=== PATIENT | female | born 1960 | race Caucasian/White ===

== ENCOUNTER 2025-10-03 12:58 | Emergency (ER) | payer MEDICARE, MEDICAID, SELFPAY ==
--- OUTSIDE RECORDS SUMMARY | 2025-01-01 08:45 | XMS_ITS ---
Author Organization [facility] [place] Address [address] [place] [address] [place] [address] Care Team Providers Care Slackman Name Role Phone ARAMIS LARSENMIHAICarmen Unavailable [phone] MonoJean-Pierre garza Unavailable [phone] REASON FOR VISIT CANCELLED Encounters Encounter Location Date Provider Diagnosis [facility] [place] [address] [place], [place] [id number] 01/01/2025 Lica Monobe Plan Of Treatment No Information Progress Notes * JAIME MCKEONDOB:1960 (65 yo F)Acc No.[id number]:01/01/2025 Progress Notes Patient: JAIME GARCIA Provider: John Danielson :1960 A ge:64 Y S ex:Female Date:01/01/2025 Address:[address] [id number] Subjective: * Chief Complaints: * 1 . CANCELLED. * Medical History: Objective: * Vitals: Assessment: Plan: * Treatment: * * Electronic signature of Jean-Pierre Danielson , PAC on 10/03/2025 at 01:28 PM EST Sign off status: Pending * Provider: John Danielson Date: 0 01/01/2025 Generated for Avnii ng/Adriana/eTransmitting on: 1 12/03/2024 01:28 PM EST
--- OUTSIDE RECORDS SUMMARY | 2025-02-11 05:30 | XMS_ITS ---
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 Role Phone KEN LARSENBambiJIMMYJAMES Unavailable [phone] MonoJean-Pierre garza Unavailable [phone] REASON FOR VISIT 6 WEEK FOLLOW UP Encounters Encounter Location Date Provider Diagnosis [facility] [place] [address] [facility] [place], [place] [id number] 02/11/2025 Lica Monobe Plan Of Treatment No Information Progress Notes * JAIME MCKEONDOB:1960 (65 yo F)Acc No.[id number]:02/11/2025 Progress Notes Patient: JAIME GARCIA Provider: John Danielson :1960 A ge:64 Y S ex:Female Date:02/11/2025 Address:[address] [facility] Subjective: * Chief Complaints: * 1 . 6 WEEK FOLLOW UP. * Medical History: Objective: * Vitals: Assessment: Plan: * Treatment: * * Electronic signature of Jean-Pierre Danielson PAC on 10/03/2025 at 01:28 PM EST Sign off status: Pending * Provider: John Danielson Date: 0 02/11/2025 Generated for Kylie rose/Adriana/eTjuan on: 1 12/03/2024 01:28 PM EST
[2025-10-03] VITALS (7 sets, daily range): BP systolic 113–140; BP diastolic 66–85; PULSE 72–86; RESP 20; TEMP 36.7–37; O2SAT 93–99; BMI 22.1
--- NOTE | 2025-10-03 13:04 | CT_ITS ---
FINAL REPORT TECHNIQUE: Thin section axial images were obtained from the aortic arch to the skull base after intravenous contrast injection per CTA protocol. Multiplanar reconstruction images were obtained. Exam was performed using dose reduction techniques and the ALARA principle. CLINICAL HISTORY: trauma, critical injury suspected FINDINGS: CTA NECK: Aortic arch: There is a normal three-vessel configuration to the aortic arch. There is no significant stenosis of the great vessels at their origins. Right carotid artery: The right common carotid artery is patent without stenosis. The cervical portions of the right internal carotid artery are patent without stenosis. 0% stenosis per NASCET criteria. Left carotid artery: The left common carotid artery is patent without stenosis. There is calcified plaque at the left carotid bulb. There is no significant stenosis of the internal carotid artery. 0% stenosis per NASCET criteria. Vertebral arteries: The vertebral arteries are patent. No significant stenosis. IMPRESSION: 0% carotid stenosis. Vertebral arteries are patent without significant stenosis. Reviewed, Interpreted and Dictated by Rubia Rodriguez MD Transcribed by Dionna Castro Authenticated and [facility]
--- NOTE | 2025-10-03 13:04 | CT_ITS ---
FINAL REPORT TECHNIQUE: Thin section axial images were obtained from skull base to vertex without contrast. Coronal reconstruction images were obtained from the axial data. Exam was performed using dose reduction techniques such as automated exposure control, adjustment of the mA and kV according to patient size, and use of iterative reconstruction technique. CLINICAL HISTORY: trauma, critical injury suspected FINDINGS: There is no mass effect or midline shift. There is no hydrocephalus. There is no intracranial hemorrhage. The posterior fossa is without acute abnormality. The basilar cisterns are preserved. There is soft tissue edema at the right temporal scalp. There is a radiopaque density in the soft tissues, could be foreign body. No skull fracture is identified. IMPRESSION: No acute intracranial abnormality. Radiopaque density in the soft tissues, could be foreign body. No skull fracture identified. Reviewed, Interpreted and Dictated by Rubia Rodriguez MD Transcribed by Dionna Castro Authenticated and [facility]
--- NOTE | 2025-10-03 13:04 | CT_ITS ---
FINAL REPORT TECHNIQUE: Thin section axial images are obtained through the brain after intravenous contrast injection. Multiplanar reconstructions were obtained from the axial data. Exam was performed using dose reduction techniques such as automated exposure control, adjustment of the mA and kV according to patient size, and use of iterative reconstruction technique. CLINICAL HISTORY: trauma, critical injury suspected FINDINGS: The intracerebral portions of the carotid arteries are patent. The anterior and middle cerebral arteries are patent without stenosis or occlusion. The posterior cerebral arteries are patent. The basilar artery is patent. The vertebral arteries are patent. There is no significant stenosis, aneurysm, or AVM. IMPRESSION: Unremarkable CT angiogram of the intracerebral vasculature. Reviewed, Interpreted and Dictated by Rubia Rodriguez MD Transcribed by Dionna Castro Authenticated and . [facility]
--- NOTE | 2025-10-03 13:04 | CT_ITS ---
FINAL REPORT TECHNIQUE: Axial imaging of the chest is obtained after the administration of contrast. 3-D MIP reformatted images were also obtained and reviewed per PE protocol. CLINICAL HISTORY: trauma, critical injury suspected FINDINGS: There is no evidence of central pulmonary embolism.. There is no aortic dissection. Heart size is normal. There is no axillary or mediastinal lymphadenopathy. There is an enlarged right hilar lymph node measuring 18 mm. There is a 5 mm left upper lobe nodule on series 5, image 43. There is emphysema and changes of prior granulomatous disease. There is mild interlobular septal thickening with subpleural predominance, could represent mild pulmonary edema. There is no pleural or pericardial effusion. No acute osseous abnormality. IMPRESSION: No evidence of central pulmonary embolism or dissection. Left upper lobe nodule. Recommend 6 to 12-month follow-up CT. Interlobular septal thickening with subpleural predominance, could represent mild pulmonary edema. No acute traumatic injury. Reviewed, Interpreted and Dictated by Rubia Rodriguez MD Transcribed by Dionna Castro Authenticated and [facility]
--- NOTE | 2025-10-03 13:04 | CT_ITS ---
FINAL REPORT TECHNIQUE: Thin section axial images were obtained through the lumbar spine without contrast. Sagittal and coronal reconstruction images were obtained from the axial data. Exam was performed using dose reduction techniques. CLINICAL HISTORY: trauma, critical injury suspected FINDINGS: There is no acute fracture. There is mild scoliosis. The alignment is otherwise normal. Vertebral body height is preserved. There is multilevel degenerative disc disease, most pronounced at L4-5. There is no significant central stenosis. Paraspinal soft tissues are within normal limits. There is no paraspinal mass or fluid collection. IMPRESSION: No acute abnormality of the lumbar spine. Mild multilevel degenerative disease. Reviewed, Interpreted and Dictated by Rubia Rodriguez MD Transcribed by Dionna Castro Authenticated and [facility]
--- NOTE | 2025-10-03 13:04 | CT_ITS ---
FINAL REPORT TECHNIQUE: Thin section axial images were obtained through the thoracic spine without contrast. Sagittal and coronal images were obtained from the axial data. This study was performed with techniques to keep radiation doses as low as reasonably achievable, (ALARA). Individualized dose reduction techniques using automated exposure control or adjustment of mA and/or kV according to the patient's size were employed. CLINICAL HISTORY: trauma, critical injury suspected FINDINGS: There is no acute fracture of the thoracic spine. There is mild dextroscoliosis. The alignment is otherwise normal. There is multilevel degenerative disc disease. No acute paraspinal abnormality is identified. IMPRESSION: No fracture. Scoliosis and degenerative disc disease. Reviewed, Interpreted and Dictated by Rubia Rodriguez MD Transcribed by Dionna Castro Authenticated and [facility]
--- NOTE | 2025-10-03 13:04 | CT_ITS ---
FINAL REPORT TECHNIQUE: Thin section axial images were obtained through the abdomen after contrast injection per CT angiogram protocol. Multiplanar reconstruction images were obtained from the axial data. This exam was performed with techniques to keep radiation dose as low as reasonably achievable. This includes automated exposure control, adjustment of the MA and KVP, and iterative reconstruction technique. CLINICAL HISTORY: trauma, critical injury suspected FINDINGS: CTA: There is no evidence of abdominal aortic aneurysm. There is ectasia of the infrarenal abdominal aorta. There is focal dissection of the distal abdominal aorta on axial images 114 and 115, could be chronic. The celiac axis, superior mesenteric artery, and inferior mesenteric artery are patent without stenosis. The renal arteries are patent. The common iliac arteries and visualized portions of the internal and external iliac arteries are patent. No significant stenosis. NONVASCULAR: The gallbladder is absent. The liver, spleen, and pancreas are unremarkable. There is a right adrenal nodule measuring 24 mm. Cortical renal scarring is seen bilaterally. There is no evidence of bowel wall thickening or small bowel obstruction. The appendix is not identified but there are no secondary findings to suggest appendicitis. There is mild wall thickening of the urinary bladder, cystitis is not excluded. There is increased density in the urinary bladder, likely related to IV contrast. The uterus is present. No lymphadenopathy or free fluid. No acute osseous abnormality. IMPRESSION: No evidence of abdominal aortic aneurysm. 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 No acute traumatic injury. Wall thickening of the urinary bladder, cystitis is not excluded. Reviewed, Interpreted and Dictated by Rubia Rodriguez MD Transcribed by Dionna Castro Authenticated and [facility]
--- NOTE | 2025-10-03 13:04 | CT_ITS ---
FINAL REPORT TECHNIQUE: Thin section axial images were obtained through the cervical spine without contrast. Multiplanar reconstruction images were obtained from the axial data. Exam was performed using dose reduction techniques. CLINICAL HISTORY: trauma, critical injury suspected FINDINGS: There is no acute fracture. There is anterolisthesis of C5 on 6 and C6 on 7, favor degenerative. Multilevel degenerative disc disease is identified, most pronounced at C6-7. There is no evidence of unilateral or bilateral facet lock. Vertebral body height is preserved. No acute paraspinal abnormality is identified. IMPRESSION: Multilevel degenerative disc disease without acute osseous abnormality. Reviewed, Interpreted and Dictated by Rubia Rodriguez MD Transcribed by Dionna Castro Authenticated and . [facility]
--- NOTE | 2025-10-03 13:04 | HMH.EDGENADL ---
Discharge Plan Disposition Patient Disposition: Home, Self-Care Condition: Good Prescriptions Prescriptions: No Action oxcarbazepine 150 mg Tablet 150 mg PO BID benztropine 0.5 mg Tablet 0.5 mg PO DAILY omeprazole 20 mg Capsule,Delayed Release(Dr/Ec) 20 mg PO DAILY aspirin 81 mg Tablet,Chewable 81 mg PO DAILY fluphenazine HCl 5 mg Tablet 5 mg PO TID cholecalciferol (vitamin D3) [Vitamin D3] 50 mcg (2,000 unit) Tablet 50 mcg PO DAILY sertraline 200 mg Capsule 200 mg PO DAILY Referrals Follow up/Referrals: Provider,Referral, MD [Primary Care Provider, Medical] - See instructions Activity Restrictions/Add. Instructions Additional Instructions/Restrictions: You fell, and you cut your head. I fixed it with glue which will dissolve on its own. Return to the ER for any acute or worsening symptoms. Clinical Impressions Clinical Impression: Fall Print Language Print Language: Anguillan Discharge ED Provider: Yue Carl Adult HPI General Chief complaint: Fall Stated complaint: Fall Time Seen by Provider: 10/03/25 13:03 History of Present Illness HPI narrative: Patient is a 65-year-old female who presented to the emergency department from [facility] with concern for fall. Patient reportedly fell down 7 stairs hit her head. There was reportedly no loss of consciousness. Patient is on aspirin but no other blood thinners. Patient arrived alert and oriented x 3. Patient was given no medications and route. On arrival, patient states that she had a mechanical fall. Patient denies any pain except for some mild pain where the laceration is on her head. Patient denies any extremity pain. Patient states that she fell hit her back and has associated back pain. Patient denies any numbness or weakness. Related Data Home Medications ?Medication ?Instructions ?Recorded ?Confirmed aspirin 81 mg chewable tablet 81 mg PO DAILY 10/03/25 10/03/25 benztropine 0.5 mg tablet 0.5 mg PO DAILY 10/03/25 10/03/25 cholecalciferol (vitamin D3) 50 50 mcg PO DAILY 10/03/25 10/03/25 mcg (2,000 unit) tablet (Vitamin D3) fluphenazine HCl 5 mg tablet 5 mg PO TID 10/03/25 10/03/25 omeprazole 20 mg capsule,delayed 20 mg PO DAILY 10/03/25 10/03/25 release oxcarbazepine 150 mg tablet 150 mg PO BID 10/03/25 10/03/25 sertraline 200 mg capsule 200 mg PO DAILY 10/03/25 10/03/25 Allergies Allergy/AdvReac Type Severity Reaction Status Date / Time No Known Allergies Allergy Verified 10/03/25 13:15 [facility] Disclaimer: The information contained in this section may have been updated after the patient was seen, as this information can be updated by other users. Social History Smoking Status: Never smoker alcohol intake: never current occupational status: other Travel in the last 8 weeks?: None ROS Obtained: Yes All systems reviewed & no additional complaints except as documented and Yes Systems reviewed as appropriate & no additional complaints except as documented Physical Exam General General appearance: alert and in no apparent distress Head Head exam: normocephalic, normal inspection and other (3 cm laceration to left frontal scalp, no active bleeding) Eye Eye exam: Present normal appearance, PERRL and EOMI; Absent scleral icterus ENT ENT exam: Present normal exam and normal external ear exam Neck Neck exam: Present normal inspection, full ROM, tenderness (Midline cervical spine tenderness) and other Chest Chest inspection: Present normal inspection and symmetric chest wall rise Respiratory Respiratory exam: Present normal lung sounds bilaterally; Absent respiratory distress or wheezes Cardiovascular Cardiovascular exam: Present regular rate, normal rhythm and normal heart sounds Abdominal Exam Abdominal exam: Present soft and distention; Absent tenderness, guarding or rebound Extremities Exam Extremities exam: Present normal inspection and full ROM Back Exam Back exam: Present normal inspection, full ROM and tenderness (midline thoracic and lumbar spine tenderness) Neurological Exam Neurological exam: Present alert and oriented X3 Psychiatric Psychiatric exam: Present normal affect and normal mood Skin Skin exam: Present warm and dry Medical Decision Making Medical Records Medical records reviewed: Yes I reviewed the patient's medical records. Screening: Per USPSTF and CDC recommendations, given the prevalence of disease in our region, it is our hospital?s policy to screen for HIV and viral Hepatitis for all patients aged 18 and over and those with ongoing risk factors. Leonidas Inquiry Pt receiving controlled substance: No Vital Signs: 10/03/25 12:58 10/03/25 13:14 10/03/25 13:30 Temperature 98.6 F Temperature Source Oral Pulse Rate 85 Pulse Rate [Left Radial] 85 Respiratory Rate 20 Blood Pressure 117/66 Blood Pressure [Right Arm] 113/69 Blood Pressure Mean [Right Arm] 83 02 Sat by Pulse Oximetry 95 97 95 Oxygen Delivery Method Room Air Room Air 10/03/25 14:00 10/03/25 14:30 10/03/25 14:49 Temperature Temperature Source Pulse Rate 86 80 78 Pulse Rate [Left Radial] Respiratory Rate Blood Pressure 140/85 129/83 135/79 Blood Pressure [Right Arm] Blood Pressure Mean [Right Arm] 02 Sat by Pulse Oximetry 94 L 93 L 93 L Oxygen Delivery Method 10/03/25 15:40 Temperature 98.1 F Temperature Source Pulse Rate 72 Pulse Rate [Left Radial] Respiratory Rate 20 Blood Pressure 135/79 Blood Pressure [Right Arm] Blood Pressure Mean [Right Arm] 02 Sat by Pulse Oximetry Oxygen Delivery Method Room Air Lab Data Lab results reviewed: Yes I reviewed the patient's lab results. Lab Results 10/03/25 12:55: WBC 8.4, RBC 3.80 L, Hgb 11.0 L, Hct 33.6 L, MCV 88.4, MCH 28.9, MCHC 32.7, RDW 13.2, Plt Count 294, MPV 9.5, Neut % (Auto) 62.4, Lymph % (Auto) 25.8, Walton % (Auto) 5.7, Eos % (Auto) 5.4, Baso % (Auto) 0.5, Neut # (Auto) 5.2, Lymph # (Auto) 2.2, Walton # (Auto) 0.5, Eos # (Auto) 0.5 H, Baso # (Auto) 0.0, PT 11.4, INR 1.03, Sodium 135 L, Potassium 3.9, Chloride 99, Carbon Dioxide 29, Anion Gap 10.9, BUN 12, Creatinine 0.90, Estimated Creat Clear 50, Estimated GFR 63, Est GFR ( Amer) 76, Glucose 127 H, Calcium 8.6, Total Bilirubin 0.5, AST 23, ALT 10 L, Alkaline Phosphatase 83, Total Protein 6.8, Albumin 4.7, Globulin 2.1, Albumin/Globulin Ratio 2.2 H, Lipase 217 10/03/25 12:55 10/03/25 12:55 Orders (Tests/Meds): ED MEDICATIONS Discontinued Medications Generic Name Dose Route Start Last Admin Trade Name Freq PRN Reason Stop Dose Admin Iopamidol 160 ml 10/03/25 13:48 10/03/25 13:49 Iopamidol-370 (76%);100ml Bottle IV 10/03/25 13:49 160 ml ONCE ONE Administration Sodium Chloride 100 ml 10/03/25 13:48 10/03/25 13:49 0.9 % Sodium Chloride 50 Ml Vial IV 10/03/25 13:49 100 ml ONCE ONE Administration Sodium Chloride 10 ml 10/03/25 13:48 10/03/25 13:49 Sodium Chloride 0.9% 10ml Syr (Rad Only) IV 11/02/25 13:47 10 ml NEEDED PRN Administration Maintain IV Site ORDERS Category Date Time Status CT angio abd/pel - TRAUMA Stat Cat Scan 10/03/25 13:[address] angio chest - dissection Stat Cat Scan 10/03/25 13:[address] angio head Stat Cat Scan 10/03/25 13:[address] angio neck Stat Cat Scan 10/03/25 13:[address] cervical spine wo con Stat Cat Scan 10/03/25 13:[address] head/brain wo con Stat Cat Scan 10/03/25 13:[address] lumbar spine wo con Stat Cat Scan 10/03/25 13:[address] thoracic spine wo con Stat Cat Scan 10/03/25 13:04 Completed CXR --portable [XR chest portable] Stat Exams 10/03/25 13:05 Completed Pelvis XR 1-2 views [XR pelvis 1-2V] Stat Exams 10/03/25 13:05 Completed CBC w/Auto Diff [Complete Blood Count Auto Diff] Stat Lab 10/03/25 12:55 Completed CMP [Comprehensive Metabolic Panel] Stat Lab 10/03/25 12:55 Completed Lipase Stat Lab 10/03/25 12:55 Completed PT INR [Prothrombin Time INR] Stat Lab 10/03/25 12:55 Completed Medical Decision Narrative: Patient is a 65-year-old female with no significant past medical history who presented to the emergency department after a fall. Patient reportedly fell down 7 stairs with no loss of consciousness. Patient is on daily aspirin. Patient states that she had a tetanus shot 1 year ago. Patient otherwise arrived hemodynamically stable with unremarkable vital signs. Differential includes but not limited to: Intracranial pathology, spinal pathology, electrolyte abnormalities, laceration, amongst others. On exam, patient had a 3 cm laceration to the frontal scalp that was repaired with glue. Patient's labs were reviewed and interpreted by myself and showed no acute electrolyte abnormalities. Patient's fall was mechanical in nature therefore EKG and tropes were not felt to be indicated for syncope rule out. CT scans were obtained including CT head, CT cervical spine CT lumbar spine CT thoracic spine which showed no acute pathology. Patient was otherwise able to ambulate in the emergency department patient was at her baseline. Patient was felt to be appropriate and stable for discharge home. Critical Care Critical Care Time Critical Care Time: No
--- NOTE | 2025-10-03 13:05 | XR_ITS ---
FINAL REPORT CLINICAL HISTORY: fall down stairs FINDINGS: The heart is normal in size. The mediastinum is unremarkable. Diffuse interstitial changes are probably chronic. The lungs are otherwise clear. There is no pneumothorax. Osseous structures unremarkable. IMPRESSION: No acute cardiopulmonary process. Continued followup is recommended. Reviewed, Interpreted and Dictated by Mike Amezcua MD Transcribed by Miguelina Walsh Authenticated and [facility]
--- NOTE | 2025-10-03 13:05 | XR_ITS ---
FINAL REPORT CLINICAL HISTORY: fall down stairs FINDINGS: SINGLE VIEW PELVIS: A single view of the pelvis was obtained. There is no acute fracture or dislocation. Visualized joint spaces are normally aligned. Soft tissues are unremarkable. IMPRESSION: No acute bony abnormality. Reviewed, Interpreted and Dictated by Mike Amezcua MD Transcribed by Miguelina Walsh Authenticated and [facility]
[2025-10-03 13:15] LABS: Hematocrit 33.6 % (37.0-47.0); Hemoglobin 11.0 g/dL (12.2-16.2); Immature Granulocytes % 0.2 %; Mean Corpuscular HGB Conc 32.7 g/dL (31.8-35.4); Mean Corpuscular Hemoglobin 28.9 pg (27.0-31.2); Mean Corpuscular Volume 88.4 fl (81-99); Nucleated Red Blood Cells % 0 %; Platelet Count 294 K/mm3 (142-424); Red Blood Count 3.80 M/mm3 (4.20-5.40); Red Cell Distribution Width-SD 43.2 fL; White Blood Count 8.4 K/mm3 (4.8-10.8)
[2025-10-03 13:18] LABS: Albumin Level 4.7 g/dl (3.5-5.0); Chloride 99 mmol/L (98-107); Potassium 3.9 mmoL/L (3.5-5.1); Sodium 135 mmol/L (136-145)
[2025-10-03 13:21] LABS: Alanine Aminotransferase 10 U/L (12-78); Albumin/Globulin Ratio 2.2 (1.1-1.8); Alkaline Phosphatase 83 U/L (38-126); Anion Gap 10.9 mEq/L (5-15); Aspartate Amino Transferase 23 U/L (14-36); Bilirubin,Total 0.5 mg/dl (0.2-1.3); Blood Urea Nitrogen 12 mg/dl (7-17); Calcium 8.6 mg/dl (8.4-10.2); Carbon Dioxide 29 mmol/L (22.0-30.0); Creatinine Clearance Estimated 50 mL/min (50-200); Creatinine,Serum 0.90 mg/dl (0.52-1.04); Estimated Glomerular Filt Rate 63 ml/min (>60); GFR (African American) 76 ML/MIN (>60); Globulin 2.1 g/dL (1.3-3.2); Glucose 127 mg/dl (74-100); Lipase 217 U/L (23-300); Total Protein,Serum 6.8 g/dl (6.3-8.2)
--- OUTSIDE RECORDS SUMMARY | 2025-10-03 13:28 | XMS_ITS | Clinical Summary ---
Author Organization 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 Role Phone Unavailable Primary Care Provider Unavailabl e Allergies No known active allergies Active Problems Problem Noted Date Diagnosed Date MDD (major depressive disord er), recurrent episode, moderate 05/07/2025 Psychosis 05/07/2025 Anxious personality disorder 05/07/2025 History of alcohol dependence 05/07/2025 History of drug dependence 05/07/2025 Social History Tobacco Use Types Packs/Day Years Used Date Smoking Tobacco: Never Assessed Comments Unknown Sex and Gender Information Value Date Recorded Sex Assigned at Not on file Legal Sex Female 8:43 PM EDT Gender Identity Not on file Sexual Orientation Not on file Plan of Treatment Health Maintenance Due Date Last Done Comments Wellness Exam Medicare 1963 Hepatitis C Screening 1978 DTaP/TDaP/Td (1 - Tdap) 1979 Pneumococcal Vaccine 50+ (1 of 2 - PCV) 1979 Cervical Cancer Screening 1981 Pap Smear 1981 HPV/Pap Cotest 1990 Breast Cancer Screening 2000 Cologuard 2005 Colon Cancer Screening 2005 Colonoscopy 2005 FIT 2005 Sigmoidoscopy 2005 Virtual Colonography 2005 Zoster (1 of 2) 2010 Bone Density Screening 2025 COVID-19 Vaccine ( - 2024-2 6 season) 2025 Influenza Vaccine (#1) 2025 Hepatitis B Vaccine Aged Out No longe r eligible based on patient's age to complete this topic Meningococcal B Vaccine Aged Out No l onger eligible based on patient's age to complete this topic Insurance [facility] PLAN BY [employer] UHC MEDICARE
--- OUTSIDE RECORDS SUMMARY | 2025-10-03 13:28 | XMS_ITS | Patient Health Record ---
Author Organization [facility] [place] Address [address] [place] [address] Care Team Providers Care Body Art Technician Name Role Phone STEF LARSEN Unavailable [phone] Monobe, Lica Unavailable [phone] Allergies No Known Allergies Reason For Referral No Information Medications Medication SIG (Take, Route, Frequency, Duration) Notes Start Date End Date Status Clotrimazole-Betamethasone 1-0.05 % 1 application Externally Twice a day; Duration: 7 days 12/31/2024 Active Naproxen 500 MG 1 tablet with food o r milk as needed Orally every 12 hrs; Duration: 30 days 12/31/2024 Active Social History Tobacco Use: Social History Observation Description Date Details (start date - stop date) Current Smoker NA - NA Tobacco Control (Standard) Question Answer Notes Tobacco use: Current every day smoker AUDIT-C (Standard) Question Answer Notes Did you have a drink containing alcohol in the p ast year? No Points 0 Interpretation Negative Section Notes: TRIPPED Problems Problem Type SNOMED Code ICD Code Onset Dates Problem Status W/U Status Risk Notes Problem Primary generalised osteoarthritis (839901334) Primary generalized (osteo)arthriti s (M15.0) Active confirmed Problem Primary localized osteoarthrosis of multiple sites (32766990) Generalized osteoarthrosis, involving multiple sites (M15.9) Active confirmed Vital Signs Heart Rate 121 /min 12/31/2024 Temperature 97.8 degrees Fahrenheit 12/31/2024 Respiratory Rate 18 /min 12/31/2024 Oximetry 96 % 12/31/2024 Blood pressure diastolic 80 mm Hg 12/31/2024 Height 64 in 12/31/2024 Blood pressure systolic 126 mm Hg 12/31/2024 Weight 134.0 lbs 12/31/2024 BMI 23 kg/m2 12/31/2024 Encounters Encounter Location Date Provider Diagnosis [facility] [place] [address] [place], [place] [id number] 12/31/2024 Lica Monobe Skin infection L08.9 and Primary generalized (osteo)arthritis M15.0 Assessments Encounter Date Diagnosis (ICD Code) Assessment Notes Treatment Notes Treatment Clinical Notes Section Notes 12/31/2024 Primary generalized (osteo)arthritis (ICD-10 - M15.0) Adding NSAIDs for inflammation. Declined steroids. [facility] work up was negative for infection. 12/31/2024 Skin infection (ICD-10 - L08.9) Possible topical fungal infection. No trauma or injury. Will add topical steroid/fungal coverage. Plan Of Treatment No Information Insurance Providers Payer Name Payer Address Payer Phone Subscriber Number Group Number Insured Name Patient Relationship to Insured Coverage Start Date Coverage End Date [employer] [address] [address] [place] [address] [id number] JAIME MCKEON Self - patient is the insured [employer] of [place] [address] [place] [address] [phone] [id number] JAIME MCKEON Self - patient is the insured Medical (General) History Medical History History ICD Code breast cancer - oral chemo Surgical History Surgery Date(Month/Year) R mastectomy
[2025-10-03 13:29] LABS: INR 1.03 (0.9-1.1); Prothrombin Time 11.4 seconds (10.1-12.5)
[2025-10-03] MEDS: IOPAMIDOL-370 (76%);100ML BOTTLE 160 ML IV (13:49)
[2025-10-03] MEDS: SODIUM CHLORIDE 0.9% 10ML SYR (RAD ONLY) 10 ML IV (13:49)
[2025-10-03] MEDS: 0.9 % SODIUM CHLORIDE 50 ML VIAL 100 ML IV (13:49)
--- NOTE | 2025-10-03 15:31 | PC.NURSE ---
called and left message with [facility] for trasnport back to [facility]
== END 2025-10-03 16:22 | disposition home or self-care (01) ==
PROVIDERS: Emergency Provider Student in an Organized Health Care Education/Training Program
DX: S01.01XA Laceration without foreign body of scalp, initial encounter (principal); M54.2 Cervicalgia; M54.6 Pain in thoracic spine; M54.50 Low back pain, unspecified; W10.8XXA Fall (on) (from) other stairs and steps, initial encounter
CPT/HCPCS: 12002; 70450; 70496; 70498; 71045; 71275; 72125; 72128; 72131; 72170; 74174; 80053; 83690; 85025; 85610; 99285; Q9967